=== PATIENT | male | born 1935 | race African-American/Black ===

== ENCOUNTER 2021-03-20 07:43 | Observation (INO) ==
[2021-03-14 11:18] LABS: Basophils % 0.3 % (0.0-0.8); Eosinophils # 0.1 10*3/uL (0.0-0.87); Eosinophils % 1.3 % (0.00-10.9); Hematocrit 44.2 VOL% (42.0-52.0); Hemoglobin 14.3 GM/DL (14.0-18.0); Immature Granulocytes % 0.5 %; Immature Granulocytes Absolute 0.03 #; Lymphocytes # 1.6 10*3/uL (1.4-4.0); Lymphocytes % 25.2 % (21.2-54.2); Mean Corpuscular HGB Conc 32.4 GM/DL (32-36); Mean Corpuscular Volume 94.8 FL (87-102); Mean Platelet Volume 9.3 FL (9.6-12.0); Monocytes % 11.4 % (1.7-12.7); Neutrophils % 61.3 % (38.7-73.9); Platelet Count 188 T/CUMM (130-400); Red Blood Count 4.66 MC/CUMM (3.8-5.5); Red Cell Distribution Width 12.6 % (9.3-17.3); White Blood Count 6.3 T/CUMM (4-12)
[2021-03-14 11:44] LABS: Calcium 9.1 MG/DL (8.5-10.1); Osmolality,Calculated 284.1 MOS/KG (273-304)
[2021-03-14 15:16] LABS: Bilirubin,Urine Negative (Negative); Blood, Urine Negative (Negative); Glucose,Urine (UA) Negative (Negative); Ketones,Urine Negative (Negative); Mucus,Urine Occasional /LPF (Occasional); Nitrite,Urine Negative (Negative); Protein,Urine Negative; RBC,Urine 2 /HPF (0-4); Squamous Epithelial Cell,Urine Occasional /HPF (0-10); Urine Appearance CLEAR (Clear); Urine Color Yellow (Yellow)
[~2021-03-20 07:43] MED LIST: ADENOSINE 6 MG/2 ML VIAL IV ONE; DEXMEDETOMIDINE 200 MCG/2 ML VIAL ONE; ENOXAPARIN 40 MG/0.4 ML SYRINGE SUBCUT SCH; LACTATED RINGERS 1,000 ML IV SCH; LEVOFLOXACIN INJ 500 MG/100 ML PREMIX IV ONE; MAGNESIUM SULF RIDER 2 GM/50 ML PREMIX IV PRN; MAGNESIUM SULF RIDER 4 GM/100 ML PREMIX IV PRN; METOPROLOL TARTRATE 5 MG/5 ML VIAL IV ONE; POTASSIUM CHLORIDE 20 MEQ TABLET PO PRN
[2021-03-20] MEDS ORDERED: ADENOSINE 6 MG/2 ML VIAL ONE ×2 (07:47→07:52)
[2021-03-20] MEDS ORDERED: PANTOPRAZOLE 40 MG TABLET PO SCH (09:00)
[2021-03-20 11:22] LABS: Albumin 3.5 G/DL (3.4-5.0); Calcium 9.1 MG/DL (8.5-10.1); Osmolality,Calculated 282.3 MOS/KG (273-304); Total Protein 6.9 G/DL (6.4-8.2)
[2021-03-20 11:38] LABS: Basophils % 0.5 % (0.0-0.8); Eosinophils # 0.1 10*3/uL (0.0-0.87); Hematocrit 39.9 VOL% (42.0-52.0); Hemoglobin 12.8 GM/DL (14.0-18.0); Immature Granulocytes % 0.4 %; Immature Granulocytes Absolute 0.02 #; Lymphocytes # 1.3 10*3/uL (1.4-4.0); Mean Corpuscular HGB Conc 32.1 GM/DL (32-36); Mean Corpuscular Volume 94.3 FL (87-102); Mean Platelet Volume 9.1 FL (9.6-12.0); Monocytes % 7.3 % (1.7-12.7); Neutrophils % 65.8 % (38.7-73.9); Platelet Count 144 T/CUMM (130-400); Red Blood Count 4.23 MC/CUMM (3.8-5.5); Red Cell Distribution Width 12.9 % (9.3-17.3); White Blood Count 5.6 T/CUMM (4-12)
[2021-03-20] MEDS ORDERED: CYANOCOBALAMIN 500 MCG TABLET PO SCH (16:53)
[2021-03-20] MEDS ORDERED: FOLIC ACID 0.4 MG TABLET PO SCH (16:53)
[2021-03-20] MEDS ORDERED: MAGNESIUM CHLORIDE 64 MG TABLET PO SCH (16:53)
[2021-03-20] MEDS ORDERED: ACETAMINOPHEN CAFFEINE PO PRN (16:53)
[2021-03-20] MEDS: SODIUM CHLORIDE 0.45% 1,000 ML IV SCH (16:56)
[2021-03-20] MEDS: ASCORBIC ACID 500 MG TABLET PO SCH ×2 (17:23→21:20)
[2021-03-20] MEDS: METOPROLOL SUCCINATE XL 50 MG TABLET PO SCH ×2 (17:24→21:20)
[2021-03-20] MEDS ORDERED: ACETAMINOPHEN 325 MG TABLET PO PRN (20:41)
[2021-03-21] MEDS: SODIUM CHLORIDE 0.45% 1,000 ML IV SCH (00:30)
[2021-03-21 08:27] VITALS: BP 144/62
== END 2021-03-21 09:56 | disposition home or self-care (01) ==
LOC: N.ED 07:43 → N.EDINP 07:43 → N.TELEN 16:51
PROVIDERS: ADMIT Family Medicine; ATTEND Family Medicine